=== PATIENT | female | born 1970 | race Caucasian/White ===

== ENCOUNTER 2021-07-03 15:38 | Emergency (ER) | payer MEDICAID ==
[~2021-07-03] VITALS: Ht 167.6 cm; Wt 90.9 kg
[2021-07-03 15:45] VITALS: BP 146/78
[2021-07-03] MEDS ORDERED: IBUPROFEN 600 MG TABLET PO ONE (16:15)
[2021-07-03] MEDS ORDERED: IBUP-2070 PO (16:47)
== END 2021-07-03 17:35 | disposition home or self-care (01) ==
LOC: EMS 15:39
DX: S83.91XA Sprain of unspecified site of right knee, initial encounter (principal); X50.1XXA Overexertion from prolonged static or awkward postures, initial encounter; Y93.89 Activity, other specified; Y92.89 Other specified places as the place of occurrence of the external cause; Y99.8 Other external cause status
CPT/HCPCS: 99283